=== PATIENT | female | born 1960 | race Caucasian/White ===

== ENCOUNTER → 2019-10-22 13:19 | Outpatient (CLI) | payer OTHER, SELFPAY ==
--- NOTE | ~2019-10-22 | MM_ITS ---
EXAMINATION: MM screening [facility] HISTORY: Screening mammogram TECHNIQUE: Craniocaudal and mediolateral oblique 3-D tomosynthesis images were obtained and synthetic 2-D images were generated. CAD analysis was submitted and interpreted. COMPARISON: 09/06/2018, 08/31/2017, 07/29/2016 bilateral digital screening mammogram examinations BREAST PARENCHYMAL COMPOSITION: There are scattered areas of fibroglandular density. FINDINGS: There is no evidence of suspicious mass, calcification, or architectural distortion to sugg est malignancy in either breast. There has been no suspicious interval change. IMPRESSION: 1. No mammographic evidence of malignancy. 2. Recommend routine screening mammography in one year. BI-RADS Category 1: Negative Reviewed, dictated and finalized at location A.
== END ==
PROVIDERS: PCP Family Medicine Adolescent Medicine; Visit Provider Family Medicine Adolescent Medicine
DX: Z12.31 Encounter for screening mammogram for malignant neoplasm of breast (principal)
CPT/HCPCS: 77063; 77067

== ENCOUNTER → 2020-08-15 12:33 | Outpatient (CLI) | payer OTHER, SELFPAY ==
--- NOTE | ~2020-08-15 | US_ITS ---
EXAMINATION: US right upper quadrant EXAM DATE: 08/15/2020 13:20 INDICATION: Right upper quadrant pain. TECHNIQUE: Multiple grayscale and Doppler images of the abdomen right upper quadrant were obtained (b y a technologist who performed the scan) and subsequently reviewed. There is no prior study for stephan stock[place]. FINDINGS: The pancreatic head and body are normal in appearance. The pancreatic tail is not visualized. The l iver has normal echogenicity and contour. There are no focal liver lesions identified. There is no evidence of intrahepatic biliary duct dilation. Portal venous flow was seen in the hepatopedal, nor mal direction and has normal Doppler waveform. No right-sided hydronephrosis. Common bile duct measures 3 mm, which is normal. The gallbladder wall is normal in thickness, with ex pected amount of distention. No sonographic evidence of pericholecystic fluid. Small amount of echo genic debris suspected in the gallbladder. Technologist performing exam reports patient did not demo nstrate sonographic Schneider's sign. Please note that this sign is less reliable in patients who have received pain medication. IMPRESSION: Probable small amount of gallbladder debris. Reviewed, dictated and finalized at location B. MGR
== END ==
PROVIDERS: PCP Family Medicine Adolescent Medicine; Visit Provider Physician Assistant
DX: R10.11 Right upper quadrant pain (principal)
CPT/HCPCS: 76705

== ENCOUNTER → 2020-11-08 09:21 | Outpatient (CLI) | payer OTHER, SELFPAY ==
--- NOTE | ~2020-11-08 | MM_ITS ---
EXAMINATION: MM screening [facility] w wil[facility] HISTORY: Screening TECHNIQUE: Craniocaudal and mediolateral oblique 3-D tomosynthesis images were obtained and synthetic 2-D images were generated. CAD analysis was submitted and interpreted. COMPARISON: Comparison to multiple prior studies sequentially, with oldest reviewed study dated 09/2013. BREAST PARENCHYMAL COMPOSITION: There are scattered areas of fibroglandular density. FINDINGS: There is no evidence of suspicious mass, calcification, or architectural distortion to sugg est malignancy in either breast. There has been no suspicious interval change. IMPRESSION: 1. No mammographic evidence of malignancy. 2. Recommend routine screening mammography in one year. BI-RADS Category 1: Negative Reviewed, dictated and finalized at location A.
--- NOTE | ~2020-11-08 | DEXA_ITS ---
Bone Density Report Name: Leda Crawford Age: 60 Sex: Female Ethnicity: White Date of : 1960 Indication: osteopenia; monitoring treatment; postmenopausal Referring Provider: Veronika, Jodie Zaragoza Study: Bone densitometry was performed. Exam Date: November 08, 2020 Accession number: [id number] Bone Density: Region BMD T-score Z-score Classification AP Spine (L1-L4) 0.889 -1.4 0.1 Osteopenia Femoral Neck (Left) 0.659 -1.7 -0.4 Osteopenia Total Hip (Left) 0.796 -1.2 -0.2 Osteopenia Femoral Neck (Right) 0.653 -1.8 -0.4 Osteopenia Total Hip (Right) 0.731 -1.7 -0.7 Osteopenia Total Hip Mean 0.764 -1.5 -0.5 Osteopenia World Health Organization criteria for BMD impression classify patients as: Normal (T-score at or above -1.0), Osteopenia (T-score between -1.0 and -2.5), or Osteoporosis (T-score at or below -2.5). 10-year Fracture Risk: FRAX not reported because: Treated for osteoporosis Previous Exams: Region Exam Age BMD T-score BMD Change BMD Change Date g/cm2 vs Baseline vs Previous AP Spine(L1-L4) 11/08/2020 60 0.889 -1.4 0.062* 0.062* 08/23/2017 57 0.827 -2.0 Total Hip(Left) 11/08/2020 60 0.796 -1.2 0.037* 0.037* 08/23/2017 57 0.760 -1.5 Total Hip(Right) 11/08/2020 60 0.731 -1.7 0.017 0.017 08/23/2017 57 0.715 -1.9 *Denotes significance at 95% confidence level, LSC for AP Spine = 0.022 g/cm2, LSC for Total Hip = 0.027 g/cm2 Clinical Information Provided by Patient: Is being treated for osteoporosis Has used the following medications: Fosamax (i.e. alendronate), Vitamin D, Calcium, MTV, Levothyroxine Patient maximum height was 61.75 Menopause Age: 49 Drinks caffeinated beverages Onset of menses at age 10 Number of children 2 Impression: The patient has low bone mass, based on the Right Femoral Neck T-score. No significant bone loss was observed. Discussion: PATIENT UNDER TREATMENT WITH NO SIGNIFICANT BMD LOSS SINCE LAST EXAM. In an untreated patient, BMD typically declines with age. A lack of decline or gain is usually a sign that treatment is efficacious and fracture risk is reduced. It is important to ask patients whether they are taking their medications and to encourage continued and appropriate compliance with their osteoporosis therapies to reduce fracture risk. It is also important to review their risk factors and encourage appropriate calcium and vitamin D intakes, exercis
== END ==
PROVIDERS: PCP Family Medicine Adolescent Medicine; Visit Provider Physician Assistant
DX: Z12.31 Encounter for screening mammogram for malignant neoplasm of breast (principal); Z78.0 Asymptomatic menopausal state; M85.88 Other specified disorders of bone density and structure, other site; M85.852 Other specified disorders of bone density and structure, left thigh; M85.851 Other specified disorders of bone density and structure, right thigh
CPT/HCPCS: 77063; 77067; 77080

== ENCOUNTER → 2022-01-07 12:38 | Outpatient (CLI) | payer OTHER, SELFPAY ==
--- NOTE | ~2022-01-07 | MM_ITS ---
EXAMINATION: MM screening [facility] BI w wilbert HISTORY: Screening mammogram TECHNIQUE: Craniocaudal and mediolateral oblique 3-D tomosynthesis images were obtained and synthetic 2-D images were generated. CAD analysis was submitted and interpreted. COMPARISON: 11/08/2020, 10/22/2019, 09/06/2018 BREAST PARENCHYMAL COMPOSITION: There are scattered areas of fibroglandular density. FINDINGS: There is no suspicious mass, calcification, or architectural distortion to suggest malignan cy in either breast. There has been no suspicious interval change. IMPRESSION: 1. No mammographic evidence of malignancy. 2. Recommend routine screening mammography in one year. BI-RADS Category 1: Negative Reviewed, dictated and finalized at location A.
== END ==
PROVIDERS: PCP Family Medicine Adolescent Medicine; Visit Provider Physician Assistant
DX: Z12.31 Encounter for screening mammogram for malignant neoplasm of breast (principal)
CPT/HCPCS: 77063; 77067

== ENCOUNTER 2022-07-29 00:27 | Day surgery (SDC) | payer OTHER, SELFPAY ==
[2022-07-14 13:57] VITALS: BMI 24.4
--- NOTE | 2022-07-14 13:58 | SUR.PREOP ---
Report to the Outpatient Waiting Room, entrance under the green pavilion located off [facility], at time _0930 on date _07/29/22 . Planned Procedure Time: _1130 . Time changes happen often and if your time is changed the preop area will call you the afternoon before. - You and your visitor will be asked to self-screen and do not enter if you have any COVID symptoms. - Only one visitor is requested with a max of two and NO children visitors are allowed at this time. - The patient visitor may be requested to leave or wait in car when not with patient due to distancing restrictions. - A mask is optional within the hospital. Patients may have clear liquids (water, carbonated beverages, clear teas, apple juice) until 3 hours prior to surgery with a maximum of 20 ounces. - No food from midnight until time of surgery - Infants may have breast milk until 4 hours before surgery, formula 6 hours prior to surgery. - Children will be allowed to drink immediately following surgery. If applicable, please bring a bottle or sippy cup to assist with drinking. Juice, water, soda, and popsicles are readily available. For infants on formula, please bring formula the day of surgery. Pacifiers are allowed. Take the following medications with a SIP of water the morning of surgery: _levothyroxine Medications to discontinue per physician vitamins Date to take last dose__07/26/22 Please no make-up, nail stateless, hairspray, perfume, deodorant, or body powder the day of surgery. No jewelry (including any body piercings) or valuables the day of surgery, leave them at home. Please take a shower or bath the night before, or the morning of, surgery with an antibacterial soap. Wear comfortable, loose fitting clothing. Children are encouraged to wear pajamas. - Jewelry must be removed prior to entering the operating room. Rings and piercings that are not removed may be cut off. - The hospital will not accept responsibility for valuables. - Please leave all valuables, including medications, at home the day of surgery. If you are going home after surgery, a licensed construction driver must drive you home. - NO public transportation without another adult if you receive anesthesia. - We recommend that an adult stay with you for 24 hours following discharge. - We also recommend that you do not drive, make important decision, drink alcoholic beverages, or take any drugs that were not prescribed by your health care provider for at least 24 hours after your discharge time. For Pediatric surgeries, we recommend two adults accompany the child home. Follow any additional instructions given to you from your surgeon. If you or anyone in your household have experienced Covid symptoms in the past week, please notify your surgeon or the nurse liaison at the phone number below for possible testing. Telephone instructions given to _vashti zavaleta and asked if any additional questions and then verbalized understanding. Patient advised to call surgeon office or pre surgery nurse liaison [phone] if any additional questions.
[2022-07-29] VITALS (9 sets, daily range): BP systolic 103–158; BP diastolic 68–101; PULSE 72–99; RESP 14–16; TEMP 36.6–37.1; O2SAT 92–100; BMI 24.6
[2022-07-29] MEDS: LACTATED RINGERS 1,000 ML 30 ML IV CONT ×2 (10:05→14:23)
--- NOTE | 2022-07-29 11:08 | WPDANESEPPF ---
Anes - Initial Pre Proc Eval Procedure: Operation Date: 07/29/22 11:30 Proposed Procedures p Bilateral Upper and Lower Blepharoplasty with Canthopexy - Jatinder Arias MD Operation Date: 08/19/22 10:30 Proposed Procedures p Bilateral Lower Eyelid Blepharoplasty - Jatinder Arias MD Date/Time: 07/29/22 11:08 Surgeon: Jatinder Arias MD Pre Op Diagnosis: Unacceptable Cosmetic Appearance Patient Data Age: 62 Gender: F Height: 1.55 m Weight: 59.15 kg Last Vital Signs Temp 36.6 C 07/29/22 09:50 Pulse 75 07/29/22 09:50 Resp 14 07/29/22 09:50 BP 122/79 07/29/22 09:50 Pulse Ox 99 07/29/22 09:50 O2 Del Method Room Air 07/29/22 09:50 Allergies Allergy/AdvReac Type Severity Reaction Status Date / Time No Known Allergies Allergy Verified 07/29/22 09:57 Home Medications Medication Instructions Recorded Confirmed Type levothyroxine 75 mcg tablet 75 mcg PO DAILY #90 tabs 09/29/21 07/29/22 Rx alendronate 70 mg tablet See Rx Instructions .Route 01/28/22 07/14/22 Rx .COMPLEX #12 tabs cholecalciferol (vitamin D3) 10 10 mcg PO DAILY 07/14/22 07/29/22 History mcg (400 unit) tablet (Vitamin D3) estradiol 10 mcg vaginal insert mcg vaginal 07/14/22 History (Imvexxy Maintenance Pack) lifitegrast 5 % eye drops in a 1 drp EACH EYE DAILY 07/14/22 07/14/22 History dropperette (Xiidra) multivit with 1 tablet PO DAILY 07/14/22 07/29/22 History bzvuuojz-shtz-XR-lutein 8 mg iron-400 mcg-300 mcg tablet (Centrum Silver Women) Patient hx anesthesia problems: none Family hx anesthesia problems: none Results Review: All pre-operative results and documents have been reviewed as part of the pre-operative evaluation. [facility] Past Medical History Medical History Hypothyroid Surgical History Surgical History History of tubal ligation Family History Family History Mother Acute myocardial infarction Heart disease Hypertension Other Breast cancer Sibling Diabetes mellitus Father Hypertension Malignant neoplasm of prostate Other Colon polyp Social History Social History Smoking status: Former smoker Second hand tobacco smoke exposure: No Smoking end date: 08/01/79 Alcohol intake: current Drinks per week: 2 Substance use: never Substance use type: does not use Gender identity (if verbalized by the patient): Female Sexual Orientation (if Verbalized by the Patient): Straight or Heterosexual Spiritual care concerns: No Agree to blood products: Yes Anes - Eval Final PreProcedure Day of Procedure 07/29/22 11:08 Patient weight: normal Heart: regular rate and rhythm Lungs: clear to auscultation Airway: Mallampati scale class II Neurological: alert and oriented Last oral intake: >/= 8 hours ASA classification: II Emergent: no Anesthetic plan: proceed Anesthesia type and monitoring: general LMA and standard monitoring Results Review: All pre-operative results and documents have been reviewed as part of the pre-operative evaluation. Informed Consent: The patient's anesthetic plan and its attendant risks and benefits were discussed with the patient/family/POA. Questions were solicited and answers provided to the satisfaction of the patient/family/POA.
--- NOTE | 2022-07-29 11:32 | P.OP_ITS ---
Procedure Note - Detailed Date of Procedure 07/29/22 Pre-op Diagnosis Unacceptable Cosmetic Appearance Post-op Diagnosis Same Procedure Performed 1. Bilateral upper eyelid blepharoplasty 2. Bilateral lower eyelid transconjunctival blepharoplasty 3. Bilateral lower eyelid canthopexy Surgeon Jatinder Arias MD Anesthesia General Description of Procedure Preoperatively risks, benefits, alternatives were discussed in extensive detail. I want them to be very realistic about the risks involved as well as exp ectations. Discussed what we can and cannot improved. Limitations of this procedure. Alternative procedure as well as adjuvant procedures. This was a lengthy open-ended conversation discussing realistic expectations of outcome. Answered all of their questions to their satisfaction. Consent obtained. She was marked in the preop holding area with her verification. Completed pinch test stimulating the upper lid blepharoplasty to ensure no case. Taken to the operating room placed supine on the operating room table. Anesthesia provided by anesthesiology. Prepped and draped in a standard sterile fashion. 1% lidocaine and 0.25% Marcaine with epinephrine was used anesthetize locally with low volume of local to protect from distortion of structures. Eyes were irrigated with BSS. Tetracaine eyedrops placed. Corneal protectors also placed. A 15 blade used to excise the upper eyelid skin. Open the medial and middle compartments and removed only what was clearly excess adipose tissue. This was closed using a running subcuticular Prolene. This was held at each end using benzoin and Steri-Strips. Needle-tip cautery was used to incise just inferior to the tarsus and a tra nsconjunctival lower lid blepharoplasty technique. The conjunctiva was retracted with a 5-0 nylon. I completed lateral canthotomy and cantholysis. I elevated in a preseptal fashion down to the level of the rim. At this point I entered the nasal, middle, and lateral compartments and removed only what was clearly excess adiposity. I verified strict hemostasis throughout. I verified that the inferior oblique was protected during this procedure. With gentle pressure on the globe I verified the contour the lower lids. Both lids proceeded in the same manner. The lower lid was tensioned for the canthopexy and excess lid removed. Canthal tendon repaired with 5-0 vicryl. Skin with 5-0 nylon. Retraction suture and corneal protectors were removed. Copious irrigated again with BSS solution. Patient was woken taken the PACU without difficulty. All instrument sponge counts were correct at the end the case. Estimated Blood Loss 10 Drains No Packing No Pathology None sent Complications No immediate complications Condition Stable Disposition PACU
--- NOTE | 2022-07-29 11:32 | WPDHPUPDATE1 ---
History and Physical Update Update Date/Time: 07/29/22 11:32 History and Physical has been reviewed, including an updated exam of the patient. There are NO changes in the patient's condition. Risks, benefits, and alternatives have been discussed and questions answered. Patient agrees to proceed with procedure.
[2022-07-29] MEDS: ceFAZolin 2 GM/D5W 50 ML 2 GM/50 ML BAG IVPB (11:45)
[2022-07-29] MEDS: LIDOCAINE HCL 1% PF 30 ML VIAL INFILTRATE (11:58)
[2022-07-29] MEDS: BUPIVACAINE/EPINEPHRINE 0.5% 30 ML VIAL INFILTRATE (11:58)
[2022-07-29] MEDS: BALANCED SALT SOLN OPHTH IRRIG 30 ML BTL EACH EYE (12:00)
[2022-07-29] MEDS: TETRACAINE HCL 0.5% OPHTH SOLN 4 ML BTL 1 DROP EACH EYE (12:23)
[2022-07-29] MEDS: fentaNYL CITRATE INJ (*CRX) 100 MCG/2 ML VIAL 25 MCG IV PUSH (14:24)
[2022-07-29] MEDS: ONDANSETRON INJ 4 MG/2 ML VIAL IV PUSH (15:00)
[2022-07-29] MEDS: oxyCODONE HCL (*CRX) 5 MG TAB IR PO (15:36)
== END 2022-07-29 16:10 | disposition home or self-care (01) ==
PROVIDERS: PCP Family Medicine Adolescent Medicine; Visit Provider Surgery Plastic and Reconstructive Surgery
PROC: (CPT 15823; principal; 2022-07-29 11:30)
DX: Z41.1 Encounter for cosmetic surgery (principal); H02.103 Unspecified ectropion of right eye, unspecified eyelid; H02.106 Unspecified ectropion of left eye, unspecified eyelid; E03.9 Hypothyroidism, unspecified; Z87.891 Personal history of nicotine dependence
CPT/HCPCS: 15823; 15820; 21282; A9270; J0690; J2250; J2405; J2704; J3010; J7120

== ENCOUNTER → 2022-11-19 10:12 | Outpatient (CLI) | payer OTHER, SELFPAY ==
--- NOTE | ~2022-11-19 | DEXA_ITS ---
Bone Density Report Name: ANATOLIY GAVIN Age: 62 Sex: Female Ethnicity: White Date of : 1960 Indication: osteopenia;postmenopausal; monitoring treatment; height loss; Referring Provider: Veronika, Jodie Zaragoza Study: Bone densitometry was performed. Exam Date: November 19, 2022 Accession number: [id number] Bone Density: Region BMD T-score Z-score Classification AP Spine (L1-L4) 0.881 -1.5 0.1 Osteopenia Femoral Neck (Left) 0.650 -1.8 -0.4 Osteopenia Total Hip (Left) 0.790 -1.2 -0.1 Osteopenia Femoral Neck (Right) 0.679 -1.5 -0.1 Osteopenia Total Hip (Right) 0.734 -1.7 -0.6 Osteopenia Total Hip Mean 0.762 -1.5 -0.4 Osteopenia World Health Organization criteria for BMD impression classify patients as: Normal (T-score at or above -1.0), Osteopenia (T-score between -1.0 and -2.5), or Osteoporosis (T-score at or below -2.5). 10-year Fracture Risk: FRAX not reported because: Treated for osteoporosis Previous Exams: Region Exam Age BMD T-score BMD Change BMD Change Date g/cm2 vs Baseline vs Previous AP Spine(L1-L4) 11/19/2022 62 0.881 -1.5 0.054* -0.008 11/08/2020 60 0.889 -1.4 0.062* 0.062* 08/23/2017 57 0.827 -2.0 Total Hip(Left) 11/19/2022 62 0.790 -1.2 0.031* -0.006 11/08/2020 60 0.796 -1.2 0.037* 0.037* 08/23/2017 57 0.760 -1.5 Total Hip(Right) 11/19/2022 62 0.734 -1.7 0.019 0.003 11/08/2020 60 0.731 -1.7 0.017 0.017 08/23/2017 57 0.715 -1.9 *Denotes significance at 95% confidence level, LSC for AP Spine = 0.022 g/cm2, LSC for Total Hip = 0.027 g/cm2 Clinical Information Provided by Patient: Is being treated for osteoporosis Has used the following medications: Fosamax (i.e. alendronate), Calcium, MTV, vit D included in Calcium Patient maximum height was 61.75 Menopause Age: 49 Drinks caffeinated beverages Onset of menses at age 10 Number of children 2 Impression: The patient has low bone mass, based on the Left Femoral Neck T-score. No significant bone loss was observed. Discussion: PATIENT UNDER TREATMENT WITH NO SIGNIFICANT BMD LOSS SINCE LAST EXAM. In an untreated patient, BMD typically declines with age. A lack of decline or gain is usually a sign that treatment is efficacious and fracture risk is reduced. It is important to ask patients whether they are taking their medications and to encourage co
== END ==
PROVIDERS: PCP Family Medicine Adolescent Medicine; Visit Provider Physician Assistant
DX: Z78.0 Asymptomatic menopausal state (principal); M85.88 Other specified disorders of bone density and structure, other site; M85.852 Other specified disorders of bone density and structure, left thigh; M85.851 Other specified disorders of bone density and structure, right thigh
CPT/HCPCS: 77080

== ENCOUNTER 2022-11-23 10:45 | Day surgery (SDC) | payer OTHER, SELFPAY ==
[2022-11-09 10:06] VITALS: BMI 24.1
[2022-11-23 11:40] VITALS: BP 139/93; PULSE 54; RESP 20; TEMP 36.2; O2SAT 100
--- NOTE | 2022-11-23 12:45 | WPDANESEPPF ---
Anes - Initial Pre Proc Eval Procedure: Operation Date: 11/23/22 13:00 Proposed Procedures p Screening Colonoscopy - Sp Owusu MD Date/Time: 11/23/22 12:45 Surgeon: Sp Owusu MD Pre Op Diagnosis: History of Colon Polyps Patient Data Age: 62 Gender: F Height: 1.55 m Weight: 60.4 kg Allergies Allergy/AdvReac Type Severity Reaction Status Date / Time No Known Allergies Allergy Verified 11/23/22 11:44 Home Medications Medication Instructions Recorded Confirmed Type alendronate 70 mg tablet See Rx Instructions .Route 01/28/22 11/23/22 Rx .COMPLEX #12 tabs cholecalciferol (vitamin D3) 10 10 mcg PO DAILY 07/14/22 11/23/22 History mcg (400 unit) tablet (Vitamin D3) estradiol 10 mcg vaginal insert 10 mcg vaginal DAILY 07/14/22 11/23/22 History (Imvexxy Maintenance Pack) lifitegrast 5 % eye drops in a 1 drp EACH EYE DAILY 07/14/22 11/23/22 History dropperette (Xiidra) multivit with 1 tablet PO DAILY 07/14/22 11/23/22 History tpixpjqk-wteq-ZD-lutein 8 mg iron-400 mcg-300 mcg tablet (Centrum Silver Women) olopatadine 0.2 % eye drops 1 drp EACH EYE DAILY 09/09/22 11/23/22 History (Pataday Once Daily Relief) sodium,potassium,mag sulfates 17.5 See Rx Instructions PO .COMPLEX 09/21/22 11/23/22 Rx gram-3.13 gram-1.6 gram oral soln #354 mL (Suprep Bowel Prep Kit) levothyroxine 75 mcg tablet 75 mcg PO DAILY #90 tabs 11/23/22 11/23/22 Rx Patient hx anesthesia problems: none Family hx anesthesia problems: none Results Review: All pre-operative results and documents have been reviewed as part of the pre-operative evaluation. [facility] Past Medical History Medical History Hypothyroid Surgical History Surgical History History of eyelid surgery History of tubal ligation Family History Family History Mother Acute myocardial infarction Heart disease Hypertension Other Breast cancer Sibling Diabetes mellitus Father Hypertension Malignant neoplasm of prostate Other Colon polyp Social History Social History Smoking status: Former smoker Second hand tobacco smoke exposure: No Smoking end date: 08/01/79 Alcohol intake: current Drinks per week: 2 Alcohol use details: 1-2 times per week Substance use: never Substance use type: does not use Living arrangements: with family Occupation/Education: retired Gender identity (if verbalized by the patient): Female Sexual Orientation (if Verbalized by the Patient): Straight or Heterosexual Spiritual care concerns: No Agree to blood products: Yes Anes - Eval Final PreProcedure Day of Procedure 11/23/22 12:45 Patient weight: normal Heart: regular rate and rhythm Lungs: clear to auscultation Airway: Mallampati scale class II Neurological: alert and oriented Last oral intake: >/= 8 hours ASA classification: II Emergent: no Anesthetic plan: proceed Anesthesia type and monitoring: general GIVS and standard monitoring Results Review: All pre-operative results and documents have been reviewed as part of the pre-operative evaluation. Informed Consent: The patient's anesthetic plan and its attendant risks and benefits were discussed with the patient/family/POA. Questions were solicited and answers provided to the satisfaction of the patient/family/POA.
[2022-11-23] MEDS: LACTATED RINGERS 1,000 ML 150 ML IV CONT (13:01)
--- NOTE | 2022-11-23 13:18 | PM.HPGS ---
History of Present Illness History of Present Illness Consent: Risks, benefits, and alternatives have been discussed and questions answered. Patient agrees to proceed with procedure. Chief complaint: History of Colon Polyps Narrative: Leda Crawford is a 62 year old female Presents for screening colonoscopy. Patient's current weight appetite and bowel movements are normal. Patient denies abdominal pain. She has had no bleeding. Family history noncontributory. Patient does have a prior history of adenomatous colon polyp removed colon in 2011. Review of Systems Review of Systems: Review of systems noncontributory. [facility] Past Medical History Medical History Hypothyroid Surgical History Surgical History History of eyelid surgery History of tubal ligation Family History Family History Mother Acute myocardial infarction Heart disease Hypertension Other Breast cancer Sibling Diabetes mellitus Father Hypertension Malignant neoplasm of prostate Other Colon polyp Social History Social History Smoking status: Former smoker Second hand tobacco smoke exposure: No Smoking end date: 08/01/79 Alcohol intake: current Drinks per week: 2 Alcohol use details: 1-2 times per week Substance use: never Substance use type: does not use Living arrangements: with family Occupation/Education: retired Gender identity (if verbalized by the patient): Female Sexual Orientation (if Verbalized by the Patient): Straight or Heterosexual Spiritual care concerns: No Agree to blood products: Yes Meds Home Medications and Allergies Home Medications Medication Instructions Recorded Confirmed Type alendronate 70 mg tablet See Rx Instructions .Route 01/28/22 11/23/22 Rx .COMPLEX #12 tabs cholecalciferol (vitamin D3) 10 10 mcg PO DAILY 07/14/22 11/23/22 History mcg (400 unit) tablet (Vitamin D3) estradiol 10 mcg vaginal insert 10 mcg vaginal DAILY 07/14/22 11/23/22 History (Imvexxy Maintenance Pack) lifitegrast 5 % eye drops in a 1 drp EACH EYE DAILY 07/14/22 11/23/22 History dropperette (Xiidra) multivit with 1 tablet PO DAILY 07/14/22 11/23/22 History epupbfzl-pkxs-QE-lutein 8 mg iron-400 mcg-300 mcg tablet (Centrum Silver Women) olopatadine 0.2 % eye drops 1 drp EACH EYE DAILY 09/09/22 11/23/22 History (Pataday Once Daily Relief) sodium,potassium,mag sulfates 17.5 See Rx Instructions PO .COMPLEX 09/21/22 11/23/22 Rx gram-3.13 gram-1.6 gram oral soln #354 mL (Suprep Bowel Prep Kit) levothyroxine 75 mcg tablet 75 mcg PO DAILY #90 tabs 11/23/22 11/23/22 Rx Allergies Allergy/AdvReac Type Severity Reaction Status Date / Time No Known Allergies Allergy Verified 11/23/22 11:44 Vital Signs Vital Signs - 24 hr 11/23/22 11:40 Temperature 97.2 F L Pulse Rate 54 L Respiratory Rate 20 Blood Pressure 139/93 H Pulse Oximetry 100 Oxygen Delivery Room Air Exam Narrative: Physical exam reveals patient be alert. Vital signs stable. HEENT exam is unremarkable. Patient is anicteric. Lungs are clear to auscultation and percussion. Heart is without murmur or extra sounds. Abdomen bowel sounds are present soft nontender with no organomegaly. Digital external rectal exam is normal. Assessment and Plan Assessment and plan (1) Personal history of colonic polyps: Code(s): Z86.010 - Personal history of colonic polyps Status: Acute Assessment and Plan: Patient has a history of colon polyps 10 years ago. Plan for surveillance colonoscopy at this time. Further recommendations will be given after endoscopy.
[2022-11-23 13:45] VITALS: BP 96/65; PULSE 76; RESP 18; O2SAT 100
--- NOTE | 2022-11-23 13:51 | WPDANESPN ---
Anes - Prog Note Post-Op Date/Time: 11/23/22 13:51 Cardiovascular status: normal Respiratory status: normal Airway patency: baseline Mental status: baseline Post-Op hydration status: normal Vital Signs: Last Vital Signs Temp 36.2 C L 11/23/22 11:40 Pulse 54 L 11/23/22 11:40 Resp 20 11/23/22 11:40 BP 139/93 H 11/23/22 11:40 Pulse Ox 100 11/23/22 11:40 O2 Del Method Room Air 11/23/22 11:40 Pain Score (VAS): 0 I/O: Intake & Output 11/22/22 11/23/22 11/23/22 23:59 07:59 15:59 Intake Total 300 Balance 300 Patient Feedback: Patient satisfied with anesthetic care.
[2022-11-23 13:55] VITALS: BP 99/70; PULSE 75; RESP 18; O2SAT 100
== END 2022-11-23 14:15 | disposition home or self-care (01) ==
PROVIDERS: PCP Family Medicine Adolescent Medicine; Visit Provider Internal Medicine Gastroenterology
PROC: 0DJD8ZZ Inspection of Lower Intestinal Tract, Via Natural or Artificial Opening Endoscopic (ICD-10-PCS; CPT 45378; principal; 2022-11-23 13:00)
DX: Z86.010 Personal history of colon polyps (principal)
CPT/HCPCS: 45378

== ENCOUNTER → 2023-01-10 10:11 | Outpatient (CLI) | payer OTHER, SELFPAY ==
--- NOTE | ~2023-01-10 | US_ITS ---
EXAMINATION: US transvaginal DATE: 01/10/2023 10:42 INDICATION: Postmenopausal bleeding TECHNIQUE: Multiple endovaginal sonographic images of the pelvis were obtained. COMPARISON: None. FINDINGS: The uterus measures 4.1 x 3.0 x 4.0 cm. The endometrial complex measures 6 mm. The right ov carlos measures 1.4 x 1.0 x 1.5 cm and contains a 0.9 cm simple cyst. The left ovary measures 1.5 x 1.3 x 2.4 cm and contains a simple 1 cm cyst. There is normal vascular flow in the ovaries. There is no f ree fluid in the pelvis. IMPRESSION: 1. No sonographic correlate for the patient's symptoms. Reviewed, dictated and finalized at location A.
== END ==
PROVIDERS: PCP Family Medicine Adolescent Medicine; Visit Provider Nurse Practitioner
DX: N95.0 Postmenopausal bleeding (principal)
CPT/HCPCS: 76830

== ENCOUNTER → 2023-01-10 10:13 | Outpatient (CLI) | payer OTHER, SELFPAY ==
--- NOTE | ~2023-01-10 | MM_ITS ---
EXAMINATION: MM screening melissa BI w wilbert HISTORY: Screening mammogram TECHNIQUE: Craniocaudal and mediolateral oblique 3-D tomosynthesis images were obtained and synthetic 2-D images were generated. CAD analysis was submitted and interpreted. COMPARISON: 01/17/2022, 11/08/2020, 10/22/2019 bilateral screening mammogram examinations BREAST PARENCHYMAL COMPOSITION: There are scattered areas of fibroglandular density. FINDINGS: There is no evidence of suspicious mass, calcification, or architectural distortion to sugg est malignancy in either breast. There has been no suspicious interval change. IMPRESSION: 1. No mammographic evidence of malignancy. 2. Recommend routine screening mammography in one year. BI-RADS Category 1: Negative Reviewed, dictated and finalized at location A.
== END ==
PROVIDERS: PCP Family Medicine Adolescent Medicine; Visit Provider Physician Assistant
DX: Z12.31 Encounter for screening mammogram for malignant neoplasm of breast (principal)
CPT/HCPCS: 77063; 77067

== ENCOUNTER → 2023-10-03 13:44 | Outpatient (CLI) | payer OTHER, SELFPAY ==
--- NOTE | ~2023-10-03 | MR_ITS ---
EXAMINATION: MR brain/brain stem wo con DATE: 10/03/2023 14:16 INDICATION: New onset headache. Visual disturbance. TECHNIQUE: Magnetic resonance imaging (MRI) of the brain and brainstem was performed without intraven ous contrast. COMPARISON: None. FINDINGS: There is no intracranial hemorrhage, acute infarction, or abnormal intracranial mass lesion . There are scattered areas of nonspecific increased T2-weighted signal intensity in the cerebral whi te matter, which is within normal limits for the patient's age. There is a focus of increased T2-weig hted signal intensity in the right lentiform nucleus, likely an old infarct. The ventricles are peggy l in size. The orbits are normal. The paranasal sinuses are clear. The mastoid air cells are normal. IMPRESSION: 1. 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 Reviewed, dictated and finalized at location E. ENGER LOCOMOTIVE ENGINEER
== END ==
PROVIDERS: PCP Family Medicine Adolescent Medicine; Visit Provider Family Medicine Adolescent Medicine
DX: R51.9 Headache, unspecified (principal); H53.9 Unspecified visual disturbance
CPT/HCPCS: 70551

== ENCOUNTER 2024-01-12 10:27 | Outpatient (CLI) | payer OTHER, SELFPAY ==
--- NOTE | ~2024-01-12 | MM_ITS ---
EXAMINATION: MM screening melissa BI w wilbert HISTORY: Screening TECHNIQUE: Craniocaudal and mediolateral oblique 3-D tomosynthesis images were obtained and synthetic 2-D images were generated. CAD analysis was submitted and interpreted. COMPARISON: Comparison to multiple prior studies sequentially, with oldest reviewed study dated 08/31. BREAST PARENCHYMAL COMPOSITION: Not dense: There are scattered areas of fibroglandular density. FINDINGS: There is no evidence of suspicious mass, calcification, or architectural distortion to sugg est malignancy in either breast. There has been no suspicious interval change. IMPRESSION: 1. No mammographic evidence of malignancy. 2. Recommend routine screening mammography in one year. BI-RADS Category 1: Negative Reviewed, dictated and finalized at location B.
== END 2024-01-12 10:28 ==
LOC: MICIMG 10:28
PROVIDERS: PCP Family Medicine Adolescent Medicine; Visit Provider Family Medicine Adolescent Medicine
DX: Z12.31 Encounter for screening mammogram for malignant neoplasm of breast (principal)
CPT/HCPCS: 77063; 77067

== ENCOUNTER 2024-09-17 11:56 | Outpatient (CLI) | payer MEDICARE, SELFPAY ==
--- NOTE | ~2024-09-17 | XR_ITS ---
EXAMINATION: XR hip RT 2V w AP pelvis DATE: 09/17/2024 12:15 INDICATION: Right hip pain. TECHNIQUE: An anteroposterior view of the pelvis and 2 views of right hip were obtained. COMPARISON: Right hip radiographs 12/14/2010 FINDINGS: Alignment is normal. No fracture. There is moderate right hip osteoarthritis and mild left hip osteoarthritis. IMPRESSION: 1. Moderate right hip osteoarthritis and mild left hip osteoarthritis. Reviewed, dictated and finalized at location A. FUNCTIONAL ANALYST
== END 2024-09-17 11:57 | disposition home or self-care (01) ==
LOC: MICIMG 11:59
PROVIDERS: PCP Family Medicine Adolescent Medicine; Visit Provider Nurse Practitioner Family
DX: M16.0 Bilateral primary osteoarthritis of hip (principal)
CPT/HCPCS: 73502

== ENCOUNTER 2024-11-20 12:40 | Outpatient (CLI) | payer MEDICARE, SELFPAY ==
--- NOTE | ~2024-11-20 | DEXA_ITS ---
Bone Density Report Name: ANATOLIY GAVIN Age: 64 Sex: Female Ethnicity: White Date of : 1960 Indication: postmenopausal; screening for osteoporosis; Referring Provider: MAMADOU LEARY Study: Bone densitometry was performed. Exam Date: November 20, 2024 Accession number: [id number] Bone Density: Region BMD T-score Z-score Classification AP Spine(L1-L4) 0.922 -1.1 0.6 Osteopenia Femoral Neck (Left) 0.651 -1.8 -0.3 Osteopenia Total Hip (Left) 0.858 -0.7 0.6 Normal Femoral Neck (Right) 0.653 -1.8 -0.2 Osteopenia Total Hip (Right) 0.757 -1.5 -0.3 Osteopenia Femoral Neck Mean 0.652 -1.8 -0.2 Osteopenia Total Hip Mean 0.807 -1.1 0.1 Osteopenia World Health Organization criteria for BMD impression classify patients as: Normal (T-score at or above -1.0), Osteopenia (T-score between -1.0 and -2.5), or Osteoporosis (T-score at or below -2.5). 10-year Fracture Risk(1): Major Osteoporotic Fracture 9.7% Hip Fracture 1.2% Reported Risk Factors: [place] (), Neck BMD=0.651, BMI=26.5 (1) FRAX(R) Version 3.08. Fracture probability calculated for an untreated patient. Fracture probability may be lower if the patient has received treatment. Clinical Information Provided by Patient: Has used the following medications: Fosamax (i.e. alendronate), Vitamin D, Calcium Patient maximum height was 61 Menopause Age: 49 Drinks caffeinated beverages Onset of menses at age 10 Number of children 2 Missed period for more than 6 months in a row Impression: The patient has low bone mass, based on the Left Femoral Neck T-score. Discussion: BONE DENSITY IS LOW AT ONE OR MORE SKELETAL SITES. This patient's lowest T-score is low at one or more skeletal sites. It meets the World Health Organization's (WHO) criteria for ?low bone mass? (T-score between -1.0 and -2.5). The patient's 10-year risk of fracture as calculated by FRAX is less than the threshold where pharmacological therapy is recommended by the National Osteoporosis Foundation (NOF). However, all treatment decisions require clinical judgment and consideration of individual patient factors, including patient preferences, comorbidities, previous drug use, risk factors not captured in the FRAX model (e.g., frailty, falls, vitamin D deficiency, increased bone turnover, interval significant decline in bone density) and possible under or overestimation of fracture risk by FRAX. The patient should follow a healthful lifestyle (good nutrition with adequate calcium and vitamin D, and appropriate weight-bearing exercise). Follow-Up: Consider repeating this study in 2 to 3 years to reassess this patient's status, or sooner if there is some new clinical indication. Reported by: LORRI on 11/20/2024 1:03:00 PM. Reviewed, dictated and finalized at location A.
== END 2024-11-20 12:41 | disposition home or self-care (01) ==
PROVIDERS: PCP Family Medicine Adolescent Medicine; Visit Provider Nurse Practitioner Family
DX: Z78.0 Asymptomatic menopausal state (principal); M85.89 Other specified disorders of bone density and structure, multiple sites
CPT/HCPCS: 77080

== ENCOUNTER 2024-12-14 09:28 | Outpatient (RCR) | payer MEDICARE, SELFPAY ==
--- NOTE | 2024-12-14 10:35 | PTOPEVAL1 ---
Assessment and note entered by Nely Mcdaniels, PT Evaluation Information Assessment Status Evaluation Subjective Information Pt reports pain fluctuate on a daily basis. Better when she is sitting or resting, worse after walking long distances and walking uphill, going up the stairs, concrete and uneven surfaces. Pain described as achy and annoying limiting her from things she wants to do. She has 10 step stairs to a finished basement at home, 10 step stairs to bedroom upstairs all stairs have 1 side railing. However, everything is accessible in the main level so she doesn't have to navigate the stairs daily. Reported Pain Level Pain Score 3: Self Report Assessment PT Clinical Summary Pt presents to therapy with R hip pain requiring introduction and gait training of the proper use of a cane prior to a scheduled Total Hip Replacement surgery on 01/22/[address] Henriquez. She demos good understanding, good 90% accuracy return demonstration of technique and safety. Therapist provided handouts for reference. Skilled PT intervention not necessary or indicated at this time. Plan of Care PT Services Indicated No These treatments will address the objective and functional deficits as defined above. The patient will be advanced safely and appropriately in order for the patient to progress towards his/her prior level of function. Additional exercises will be introduced and as well as a comprehensive home exercise program upon discharge, if needed, to ensure carryover of functional gains achieved in the clinic. This treatment plan has been reviewed and agreement upon by the patient.
--- NOTE | 2024-12-14 11:38 | PTOPEVDC ---
Assessment and note entered by Nely Mcdaniels, PT Thank you for referring Leda Crawford to [facility]. An evaluation has been completed. No further treatment is needed. Evaluation Information Assessment Status Evaluation Subjective Information Pt reports pain fluctuate on a daily basis. Better when she is sitting or resting, worse after walking long distances and walking uphill, going up the stairs, concrete and uneven surfaces. Pain described as achy and annoying limiting her from things she wants to do. She has 10 step stairs to a finished basement at home, 10 step stairs to bedroom upstairs all stairs have 1 side railing. However, everything is accessible in the main level so she doesn't have to navigate the stairs daily. Reported Pain Level Pain Score 3: Self Report Assessment PT Clinical Summary Pt presents to therapy with R hip pain requiring introduction and gait training of the proper use of a cane prior to a scheduled Total Hip Replacement surgery on 01/22/[address] Henriquez. She demos good understanding, good 90% accuracy return demonstration of technique and safety. Therapist provided handouts for reference. Skilled PT intervention not necessary or indicated at this time. Plan of Care PT Services Indicated No
== END 2024-12-17 08:57 | disposition home or self-care (01) ==
LOC: ANHGOSHPT 09:28
PROVIDERS: PCP Family Medicine Adolescent Medicine; Visit Provider Orthopaedic Surgery
DX: M16.11 Unilateral primary osteoarthritis, right hip (principal)
CPT/HCPCS: 97116; 97161

== ENCOUNTER 2025-01-02 11:42 | Outpatient (CLI) | payer MEDICARE, SELFPAY ==
--- NOTE | 2025-01-02 12:49 | ECG_ITS ---
Test Date: 2025-01-02 13:08:37 Measurements Intervals [place] Rate: 46 P: 41 TN: 143 QRS: 0 QRSD: 88 T: 1 QT: 389 QTc: 342 Interpretive Statements SINUS BRADYCARDIA NON-CONDUCTED ATRIAL PREMATURE COMPLEX DELAYED PRECORDIAL R/S TRANSITION CONSIDER INFERIOR INFARCT, AGE INDETERMINATE ABNORMAL ECG No previous ECG available for comparison Electronically Signed On 01-02-2025 13:11:23 CDT by Korey Johnston D.O.
[2025-01-02 13:44] LABS: Basophils Percent Auto 0.7 % (0.2-1.2); Eosinophils Absolute Auto 0.2 K/mm3 (0-0.3); Eosinophils Percent Auto 3.7 % (0-4.4); Hematocrit 38.2 % (37.0-47.0); Immature Granulocyte Absolute 0.02 K/mm3 (0.00-0.031); Immature Granulocyte Percent A 0.3 % (0-0.5); Lymphocytes Absolute Auto 1.58 K/mm3 (0.9-3.2); Lymphocytes Percent Auto 26.7 % (18.3-44.2); Mean Corpuscular HGB Conc 31.4 g/dl (32-36); Mean Corpuscular Hemoglobin 31.5 pg (26-34); Mean Corpuscular Volume 100.3 fl (80-100); Mean Platelet Volume 10.1 fl (7.4-10.4); Monocytes Absolute Auto 0.6 K/mm3 (0.1-0.6); Monocytes Percent Auto 9.3 % (2.6-8.5); Neutrophils Absolute Auto 3.5 K/mm3 (1.3-6.7); Neutrophils Percent Auto 59.3 % (45.5-73.1); Platelet Count Result 277 k/mm3 (150-375); Red Blood Count 3.81 M/mm3 (4.2-5.4); Red Cell Distribution Width 12.8 % (11.5-14.5); White Blood Count 5.9 K/mm3 (4.5-10.0)
[2025-01-02 14:01] LABS: Albumin Level 4.5 g/dL (3.5-5.1); Anion Gap 9 mmol/L (4-12); Blood Urea Nitrogen 18 mg/dL (7-17); Calcium 9.3 mg/dL (8.4-10.2); Carbon Dioxide 29 mmol/L (22-30); Chloride 101 mmol/L (98-107); Estimated Glomerular Filt Rate > 60; Glucose 81 mg/dL (65-110); Potassium 4.2 mmol/L (3.4-5.0); Sodium 139 mmol/L (137-145)
[2025-01-02 16:34] LABS: Urine Cotinine NEGATIVE
== END 2025-01-02 11:43 | disposition home or self-care (01) ==
LOC: ANHSURGERY 11:48
PROVIDERS: PCP Family Medicine Adolescent Medicine; Visit Provider Orthopaedic Surgery
DX: Z01.818 Encounter for other preprocedural examination (principal); M16.11 Unilateral primary osteoarthritis, right hip; R94.31 Abnormal electrocardiogram [ECG] [EKG]
CPT/HCPCS: 80048; 80307; 82040; 83036; 85025; 87081; 93005

== ENCOUNTER 2025-01-14 13:11 | Outpatient (CLI) | payer MEDICARE, SELFPAY ==
--- NOTE | ~2025-01-14 | MM_ITS ---
EXAMINATION: MM screening melissa BI w wilbert HISTORY: Screening TECHNIQUE: Craniocaudal and mediolateral oblique 3-D tomosynthesis images were obtained and synthetic 2-D images were generated. CAD analysis was submitted and interpreted. COMPARISON: Comparison to multiple prior studies sequentially, with oldest reviewed study dated 12/2018. BREAST PARENCHYMAL COMPOSITION: Not dense: There are scattered areas of fibroglandular density. FINDINGS: There is no evidence of suspicious mass, calcification, or architectural distortion to sugg est malignancy in either breast. There has been no suspicious interval change. IMPRESSION: 1. No mammographic evidence of malignancy. 2. Recommend routine screening mammography in one year. BI-RADS Category 1: Negative Reviewed, dictated and finalized at location A.
== END 2025-01-14 13:12 | disposition home or self-care (01) ==
LOC: MICIMG 13:12
PROVIDERS: PCP Family Medicine Adolescent Medicine; Visit Provider Family Medicine Adolescent Medicine
DX: Z12.31 Encounter for screening mammogram for malignant neoplasm of breast (principal)
CPT/HCPCS: 77063; 77067

== ENCOUNTER 2025-01-22 00:35 | Day surgery (SDC) | payer MEDICARE, SELFPAY ==
[2025-01-02 12:10] VITALS: BP 106/63; PULSE 67; RESP 16; TEMP 37.1; O2SAT 99; BMI 26.7
--- NOTE | 2025-01-02 12:31 | PC.NURSE ---
Report to the Outpatient Waiting Room, entrance under the green pavilion located off [facility], at time ___6:00AM____ on date ____01/22/25___. Planned Procedure Time: ___7:30AM .? Time changes happen often and if your time is changed the preop area will call you the afternoon before. - You and your visitor will be asked to self-screen and do not enter if you have any COVID symptoms. Please call surgeon if you need to reschedule. - A mask is optional within the hospital at this time. Patients may have clear liquids (water, carbonated beverages, clear teas, apple juice) until 3 hours prior to surgery (4:30AM) with a maximum of 20 ounces. - No food from midnight until time of surgery and no smoking, or chewing tobacco (or any form of nicotine). No chewing gum, candy or mints. Take only the following medications with a SIP of water on the morning of surgery: ____LEVOTHYROXINE DO NOT STOP ANY OF YOUR OTHER PRESCRIPTION MEDICATIONS PRIOR TO SURGERY EXCEPT THE FOLLOWING Hold all vitamins and supplements for 3 days per anesthesiologist. LAST DOSE 01/18/25 Medications to discontinue per physician __HOLD ASPIRIN AND NSAIDS 7 DAYS PRE-OP PER DR HADDAD. Date to take last dose____01/14/25 Please no make-up, nail ghanaian, hairspray, perfume, deodorant, or body powder the day of surgery.? No jewelry (including any body piercings) or valuables the day of surgery, leave them at home.? Please take a shower or bath the night before, or the morning of, surgery with an antibacterial soap.? Wear comfortable, loose fitting clothing.? - Jewelry must be removed prior to entering the operating room.? Rings and piercings that are not removed may be cut off. - The hospital will not accept responsibility for valuables.? - Please leave all valuables, including medications, at home the day of surgery. If you are going home after surgery, a licensed xm1 tank driver must drive you home.? - NO public transportation without another adult if you receive anesthesia. - We recommend that an adult stay with you for 24 hours following discharge. - We also recommend that you do not drive, make important decision, drink alcoholic beverages, or take any drugs that were not prescribed by your health care provider for at least 24 hours after your discharge time. Follow any additional instructions given to you from your surgeon. Telephone instructions given to ____PATIENT and asked if any additional questions and then verbalized understanding. Patient advised to call surgeon office or pre surgery nurse liaison [phone] if any additional questions.
--- NOTE | 2025-01-21 12:41 | P.HP_ITS ---
H&P: HPI History of Present Illness Date/Time: 01/21/25 12:41 Chief Complaint: Right hip DJD Narrative: 64-year-old female presents today for a right anterior total hip arthroplasty. Patient has been having symptoms in the right hip for approximately 1 year. She has had several episodes severe pain emanating from the hip. These treated shoulders steroids which helped some. At this point patient is on Celebrex 200 mg daily which this point his only offering her mild improvement her symptoms. She has moderately severe type 1 osteoarthritis in the right hip. At this point patient is the hip pain is affecting her daily lifestyle and limiting activities. She would like to proceed with total hip arthroplasty at this point rather than continue nonsurgical treatment Review of Systems Review of Systems: All systems reviewed & are unremarkable except as noted in HPI and below PMFSH Past Medical History Medical History Degenerative joint disease (DJD) of hip Hypothyroid Pure hypercholesterolemia, unspecified Depression Hypertension Osteopenia (2018) Pain in right thigh Right hip pain Hypothyroid Surgical History Surgical History History of eyelid surgery History of tubal ligation Family History Family History Mother Acute myocardial infarction Heart disease Hypertension Age related osteoporosis Other Breast cancer Sibling Diabetes mellitus Father Hypertension Malignant neoplasm of prostate Other Colon polyp Social History Social History (Updated 11/28/24 @ 10:57 by Jazmine Sanchez CMA) Smoking packs per day: 0.5 Smoking cigarettes per day: 10.0 Years smoked: 1 Smoking pack-years: 0.50 Smoking status: Former smoker Tobacco type: cigarettes Second hand tobacco smoke exposure: No Smoking end date: 01/29/85 Alcohol intake: current Drinks per week: 3 Alcohol use details: 1-2 times per week Substance use: never Substance use type: does not use Current Housing: Decline to Answer Concerned About Future Housing: Decline to Answer Difficulty Paying Gas/Electric Bills: Decline to Answer Difficulty Paying for Meds: Decline to Answer Currently Unemployed: Decline to Answer Education: Decline to Answer Difficulty w/ Childcare or Family Care: Decline to Answer Living arrangements: with family Additional living arrangements comments: [place] Occupation/Education: retired Gender identity (if verbalized by the patient): Female Sexual Orientation (if Verbalized by the Patient): Straight or Heterosexual Spiritual care concerns: No Agree to blood products: Yes Meds Home Medications and Allergies Home Medications ?Medication ?Instructions ?Recorded ?Confirmed ?Type bztjgbdr-dtlt-gtts 8 mg-folic 400 1 tablet PO DAILY 07/14/22 01/02/25 History mcg-K 50 mcg-lutein 300 mcg tablet (Centrum Silver Women) aspirin 81 mg tablet,delayed 81 mg PO DAILY 07/10/24 01/02/25 History release atorvastatin 20 mg tablet 20 mg PO DAILY #90 tabs 07/10/24 01/02/25 Rx levothyroxine 75 mcg tablet 75 mcg PO DAILY #90 tabs 09/04/24 01/02/25 Rx lisinopril 5 mg tablet 5 mg PO DAILY #90 tabs 09/17/24 01/02/25 Rx calcium carb-ergocalciferol (vit 1 tablet PO DAILY 01/02/25 01/02/25 History D2) 600 mg calcium-200 unit tablet celecoxib 200 mg capsule (Celebrex) 200 mg PO DAILY PRN pain 01/02/25 01/02/25 History estradiol 10 mcg vaginal tablet 10 mcg vaginal WEEKLY 01/02/25 01/02/25 History vitamin A-vitamin C-vit E-min 1 tablet PO DAILY 01/02/25 01/02/25 History tablet (Ocutabs tablet) Allergies Allergy/AdvReac Type Severity Reaction Status Date / Time No Known Allergies Allergy Verified 01/02/25 12:01 Exam Narrative: 64-year-old female alert pleasant. She is 5 ft tall much 24. She walks with a right hip flexes to 125 causing anterior hip pain, internal rotation 20? causing tightness feeling and external rotation 40? which causes thigh pain. Sti nchfield maneuver causes her anterior proximal thigh pain. She has normal abduction strength in the hip with no tenderness over the trochanter. 2+ dorsalis pedis and posterior tibial pulse palpable. There is no edema in either lower extremity. She has normal sensation both lower extremities. Skin around the hip and groin crease are normal. Resp: Auscultation: clear to auscultation bilaterally Cardio: Rate: regular rate Rhythm: regular rhythm Assessment and Plan Assessment and plan (1) Primary osteoarthritis of right hip: Code(s): M16.11 - Unilateral primary osteoarthritis, right hip Status: Acute Assessment and Plan: 64-year-old female who has moderately severe type 1 osteoarthritis of the right hip. She has continued symptoms on a daily basis. At times they are severe. Patient's symptoms are not improved satisfactory enough with nonsurgical treatment and patient feels she is ready proceed with total hip arthroplasty at this point. Surgical procedure as well as the risks and complications were discussed in detail all questions were answered and we will proceed. Patient will see her primary care doctor for pre-surgical clearance. She may continue with the Celebrex up until the time of surgery. She will stop her aspirin prior to surgery. Patient was also advised to stop estrogen as of 11/28. Patient's hemoglobin is 12.0 platelets 277. Chem panel is all within normal limits creatinine 0.84. Her nasal swab was negative.
[2025-01-22] VITALS (15 sets, daily range): BP systolic 92–132; BP diastolic 48–98; PULSE 65–92; RESP 12–18; TEMP 36.2–37.5; O2SAT 95–100
--- NOTE | ~2025-01-22 | XR_ITS ---
EXAMINATION: XR hip RT 1V w AP pelvis DATE: 01/22/2025 10:36 INDICATION: Right total hip arthroplasty TECHNIQUE: Anteroposterior view of the pelvis and cross-table lateral views of the right hip were obt ained. COMPARISON: None. FINDINGS: Newly placed noncemented right total hip arthroplasty which is in near-anatomic alignment. Acetabular component fixed with a single screw. No fracture. Surgical drain and some soft tissue gas at the ope rative bed. Mild osteoarthritis at the left hip and bilateral sacroiliac joints. Multiple phleboliths in the left hemipelvis. IMPRESSION: 1. Right total hip arthroplasty in near-anatomic alignment, negative for postoperative purposes. Reviewed, dictated and finalized at location A. IMPRESSION: 1. Right total hip arthroplasty in near-anatomic alignment, negative for postop erative purposes.
--- NOTE | ~2025-01-22 | XR_ITS ---
EXAMINATION: XR surgery orthopedic DATE: 01/22/2025 10:16 INDICATION: Right total hip arthroplasty TECHNIQUE: Single frontal fluoroscopic image of the right hip was obtained during procedure performed by Dr. Henriquez. Radiologist was not present for the imaging or procedure. The amount of fluoroscopy time used during this procedure was 0.7 minutes. Total DAP was 0.198 mGym^2. COMPARISON: None. FINDINGS: Noncemented right total hip arthroplasty which appears well seated in near-anatomic alignment. Acetab ular component affixed with at least a single screw. No fractures identified. Expected soft tissue ga s at the operative bed. IMPRESSION: 1. Expected appearance during right total hip arthroplasty. See procedure note for further detail. Reviewed, dictated and finalized at location A.
[2025-01-22] MEDS: LACTATED RINGERS 1,000 ML 30 ML IV CONT ×2 (07:00→10:40)
[2025-01-22] MEDS: VANCOMYCIN 1,000 MG/NS 250 ML BAG 250 MG IVPB (07:00)
[2025-01-22] MEDS: TRANEXAMIC ACID 1,000MG/ISO100 1,000 MG/100 ML BAG 200 MG IVPB (07:00)
[2025-01-22] MEDS: ACETAMINOPHEN 500 MG TABLET 1000 MG PO (07:00)
--- NOTE | 2025-01-22 07:03 | WPDHPUPDATE1 ---
History and Physical Update Update Date/Time: 01/22/25 07:03 History and Physical has been reviewed, including an updated exam of the patient. There are NO changes in the patient's condition. Risks, benefits, and alternatives have been discussed and questions answered. Patient agrees to proceed with procedure.
--- NOTE | 2025-01-22 07:05 | WPDHPUPDATE1 ---
History and Physical Update Update Date/Time: 01/22/25 07:05 History and Physical has been reviewed, including an updated exam of the patient. There are NO changes in the patient's condition. Risks, benefits, and alternatives have been discussed and questions answered. Patient agrees to proceed with procedure. Also , patient did stop her aspirin 7 days ago. She points out that she had never experienced a stroke but a small abnormality was noted on brain MRI in past, done for headache , showed spot of bright T2 right lentiform nucleus c/w infarct. We will plan therefore to use eliquis post op for dvt proph.
--- NOTE | 2025-01-22 07:14 | WPDANESEPPF ---
Anes - Initial Pre Proc Eval Procedure: Operation Date: 01/22/25 07:30 Proposed Procedures p Right Total Hip Arthroplasty Anterior Approach - Omari Henriquez MD Date/Time: 01/22/25 07:14 Surgeon: Omari Henriquez MD Pre Op Diagnosis: o a rt hip Patient Data Age: 64 Gender: F Height: 1.55 m Weight: 63.5 kg Last Vital Signs Temp 97.1 F L 01/22/25 06:30 Pulse 65 01/22/25 06:30 Resp 16 01/22/25 06:30 BP 130/76 01/22/25 06:30 Pulse Ox 100 01/22/25 06:30 O2 Del Method Room Air 01/22/25 06:30 Allergies Allergy/AdvReac Type Severity Reaction Status Date / Time No Known Allergies Allergy Verified 01/22/25 07:07 Home Medications ?Medication ?Instructions ?Recorded ?Confirmed ?Type lnsamgte-cfdr-yxcs 8 mg-folic 400 1 tablet PO DAILY 07/14/22 01/22/25 History mcg-K 50 mcg-lutein 300 mcg tablet (Centrum Silver Women) aspirin 81 mg tablet,delayed 81 mg PO DAILY 07/10/24 01/22/25 History release atorvastatin 20 mg tablet 20 mg PO DAILY #90 tabs 07/10/24 01/22/25 Rx levothyroxine 75 mcg tablet 75 mcg PO DAILY #90 tabs 09/04/24 01/22/25 Rx lisinopril 5 mg tablet 5 mg PO DAILY #90 tabs 09/17/24 01/22/25 Rx calcium carb-ergocalciferol (vit 1 tablet PO DAILY 01/02/25 01/22/25 History D2) 600 mg calcium-200 unit tablet celecoxib 200 mg capsule (Celebrex) 200 mg PO DAILY PRN pain 01/02/25 01/02/25 History estradiol 10 mcg vaginal tablet 10 mcg vaginal WEEKLY 01/02/25 01/22/25 History vitamin A-vitamin C-vit E-min 1 tablet PO DAILY 01/02/25 01/22/25 History tablet (Ocutabs tablet) Patient hx anesthesia problems: none Family hx anesthesia problems: none Results Review: All pre-operative results and documents have been reviewed as part of the pre-operative evaluation. [facility] Past Medical History Medical History Degenerative joint disease (DJD) of hip Hypothyroid Pure hypercholesterolemia, unspecified Depression Hypertension Osteopenia (2018) Pain in right thigh Right hip pain Hypothyroid Surgical History Surgical History History of eyelid surgery History of tubal ligation Family History Family History Mother Acute myocardial infarction Heart disease Hypertension Age related osteoporosis Other Breast cancer Sibling Diabetes mellitus Father Hypertension Malignant neoplasm of prostate Other Colon polyp Social History Social History Smoking packs per day: 0.5 Smoking cigarettes per day: 10.0 Years smoked: 1 Smoking pack-years: 0.50 Smoking status: Former smoker Tobacco type: cigarettes Second hand tobacco smoke exposure: No Smoking end date: 01/29/85 Alcohol intake: current Drinks per week: 3 Alcohol use details: 1-2 times per week Substance use: never Substance use type: does not use Current Housing: Decline to Answer Concerned About Future Housing: Decline to Answer Difficulty Paying Gas/Electric Bills: Decline to Answer Difficulty Paying for Meds: Decline to Answer Currently Unemployed: Decline to Answer Education: Decline to Answer Difficulty w/ Childcare or Family Care: Decline to Answer Living arrangements: with family Additional living arrangements comments: [place] Occupation/Education: retired Gender identity (if verbalized by the patient): Female Sexual Orientation (if Verbalized by the Patient): Straight or Heterosexual Spiritual care concerns: No Agree to blood products: Yes Anes - Eval Final PreProcedure Day of Procedure 01/22/25 07:14 Patient weight: normal Lungs: normal air movement Airway: Mallampati scale class II and special considerations (Small chip noted to R incisor. ) Neurological: alert and oriented Last oral intake: >/= 8 hours ASA classification: II Emergent: no Anesthetic plan: proceed Anesthesia type and monitoring: general ETT and standard monitoring Results Review: All pre-operative results and documents have been reviewed as part of the pre-operative evaluation. HTN, hyperlipidemia. Snores but no known GENEVIEVE. Pt had stress test within the last 2 weeks due to abnormal EKG which is nml, no perfusion defects, nml LVEF. Informed Consent: The patient's anesthetic plan and its attendant risks and benefits were discussed with the patient/family/POA. Questions were solicited and answers provided to the satisfaction of the patient/family/POA.
[2025-01-22] MEDS: ceFAZolin 2 GM/D5W 50 ML 2 GM/50 ML BAG IVPB ×3 (07:26→21:58)
[2025-01-22] MEDS: ceFAZolin SODIUM 1 GM VIAL 3 GM (08:16)
[2025-01-22] MEDS: SODIUM CHLORIDE 0.9% IV 37.7 ML, MORPHINE SULFATE INJ (*CRX) 2 MG, ROPivacaine HCL 1% 2... INFILTRATE (08:17)
[2025-01-22] MEDS: ceFAZolin SODIUM 1 GM VIAL 2 GM IV PUSH (10:02)
[2025-01-22] MEDS: KETOROLAC 15 MG/ML VIAL (*BKC) 7.5 MG IV PUSH ×3 (10:08→23:47)
[2025-01-22] MEDS: TRANEXAMIC ACID 1,000 MG/10 ML AMPUL 1000 MG IV PUSH (10:10)
--- NOTE | 2025-01-22 10:39 | P.OP_ITS ---
Procedure Note - Detailed Date of Procedure 01/22/25 Pre-op Diagnosis o a rt hip Post-op Diagnosis Same Procedure Performed Right total hip arthroplasty direct anterior approach Surgeon Omari Henriquez MD [facility] PA-C Anesthesia General Description of Procedure Patient was brought to the operating room and general anesthesia was administered. She received 2 g of Ancef weight based vancomycin 1 g of TXA preoperatively. Fever padded boots applied she was transferred to the OSI [place] table. SCDs applied to the legs and running during the procedure. The right hip was prepped draped usual fashion. A 10 cm longitudinal incision was made starting 3 cm lateral to the ASIS. The fascia over the tensor fascia aby was exposed and incised along its midportion elevated off the anterior 50% of the TFL muscle. Interval between TFL and rectus femoris developed. Crossing branches of ascending lateral femoral circumflex vessels were ligated with suture divided. Retractor was placed anteromedial to the capsule hip abducted internally rotated the gluteus minimus elevated off the lateral capsule. There is a little bit of deeper detachment of the gluteus minimus but superficially at remained intact distally. Inverted T capsulotomy was performed. Femoral neck osteotomy made according to preoperative templating. The femoral head measured 44 mm in diameter and was arthritic. Acetabulum was exposed and labrum excised. The acetabulum was medialized the medial wall with a 40 mm Reamer under fluoroscopic guidance. We reamed up to 45 mm which gave circumferential reaming at the periphery. We reamed to 46 mm. We saw that we did not encounter the a cysts that were suggested on the preoperative x-rays in the supra-acetabular ilium. The 46 mm emphasis cup was chosen and fully seated at 40? of abduction and with anteversion such that the anterior rim of the shell was just under the anterior rim of the acetabulum. Excellent Press-Fit was achieved. Single screw placed in the ilium which obtained excellent purchase. Thirty-two inner diameter polyethylene liner was fully seated without difficulty. With the table hook in place the leg was externally rotated and extended exposing the proximal femur. We did not incise between piriformis and conjoined tendon and she seemed to have adequate mobility and exposure of the femur the wrist broached to a size have or. We trialed with the 1 mm neck size on the standard offset neck as we predicted on preop templating and this gave leg lengths the exact to the under fluoroscopy and symmetric offset and appropriate soft tissue tension. We calcar planed and assess the torsional stability of the 4 broach and we could see that there was still some play. We broached up to a size 5 and we countersunk this about 1/2 mm this gave complete torsional stability. On trialing with the size 1 had to neck we again saw equal leg lengths under fluoroscopy. Final calcar planing was performed and we chose the size 5 standard neck Actis stem which was impacted and seated fully without complication. No cracks in the calcar. We trialed again with the size 1 had appropriate soft tissue tension and stability. The ceramic 32 mm +1 head was impacted onto the clean and dried trunnion after thorough irrigation with Ancef solution. Hip was reduced and soft tissue tension and stability reconfirmed. Final fluoroscopic picture taken. The superior limb of the capsulotomy was repaired with 2. Vicryl suture. Local anesthetic cocktail was injected in the periarticular soft tissues. The fascia was closed with 1. Vicryl a drain deep in the subcu skin closed with 2 subcutaneous Vicryl and glue. EBL with Cell Saver was measured at 250 cc so we estimated total blood loss 3 years cc. There was not enough blood loss to transfuse any Cell Saver blood back. Two additional g of Ancef and 1 g TXA given time wound closure. I felt bone quality was adequate to allow weight-bearing as tolerated. She was transferred postop recovery room stable condition. [facility] Billing Surgery - Charge Forward: Surgery Billing (Right total hip arthroplasty)
--- NOTE | 2025-01-22 10:47 | PM.OP ---
Procedure Note - Brief Procedure Note - Brief Date of procedure: 01/22/25 o a rt hip Procedure performed: Right anterior total hip arthroplasty Surgeon: SHANNAN Mcgarry Findings: 64-year-old female underwent right anterior total hip arthroplasty on 01/22. I was involved in the procedure including positioning the patient on the OR table in 1st assisting the time surgery. Total time spent was 3 hours
[2025-01-22] MEDS: fentaNYL CITRATE INJ (*CRX) 100 MCG/2 ML VIAL 25 MCG IV PUSH ×2 (11:05→11:56)
[2025-01-22] MEDS: ARTIFICIAL TEARS OPHTH SOLN 15 ML BOTTLE 1 DROP EACH EYE ×2 (12:08→15:22)
[2025-01-22] MEDS: oxyCODONE HCL (*CRX) 5 MG TAB IR PO ×3 (12:54→20:58)
[2025-01-22] MEDS: ACETAMINOPHEN 325 MG TABLET 650 MG PO ×4 (12:54→23:46)
[2025-01-22] MEDS: SODIUM CHLORIDE 0.9% IV 1,000 ML 125 ML IV CONT (12:54)
--- NOTE | 2025-01-22 13:11 | ADMGEN ---
This patient, Leda Crawford, was admitted to [facility] Surg Room 310-01. Patient/family oriented to hospital policies and general routines including ID bracelet, bed and alarms, visiting hours, pain management, procedures, bathroom and other care routines, personal items, smoking policy, room service/diet, and visiting hours. Information on how to activate the Rapid Response Team has been discussed. Patient/Family are encouraged to report perceived risks to care and to ask questions if they do not understand what they are told or what they should do.
[2025-01-22] MEDS: SENNA/DOCUSATE SODIUM TABLET 2 TAB PO (16:03)
[2025-01-22] MEDS: VANCOMYCIN 1,000 MG/NS 250 ML 1,000 MG/250 ML BAG 250 MG IVPB (18:09)
[2025-01-22] MEDS: FAMOTIDINE 20 MG TABLET PO (20:57)
[2025-01-23] MEDS: SODIUM CHLORIDE 0.9% IV 1,000 ML 125 ML IV CONT (00:14)
[2025-01-23 03:34] VITALS: BP 100/53; PULSE 74; RESP 16; TEMP 36.8; O2SAT 97
[2025-01-23] MEDS: LEVOTHYROXINE SODIUM 75 MCG TABLET PO (05:36)
[2025-01-23] MEDS: oxyCODONE HCL (*CRX) 5 MG TAB IR PO ×2 (05:36→10:11)
[2025-01-23] MEDS: ceFAZolin 2 GM/D5W 50 ML 2 GM/50 ML BAG IVPB (05:37)
[2025-01-23] MEDS: ACETAMINOPHEN 325 MG TABLET 650 MG PO ×2 (05:37→10:11)
[2025-01-23] MEDS: VANCOMYCIN 1,000 MG/NS 250 ML 1,000 MG/250 ML BAG 250 MG IVPB (06:24)
[2025-01-23 06:25] LABS: Basophils Percent Auto 0.3 % (0.2-1.2); Eosinophils Percent Auto 0.3 % (0-4.4); Hematocrit 27.9 % (37.0-47.0); Hemoglobin 8.7 g/dL (12.0-15.0); Immature Granulocyte Absolute 0.03 K/mm3 (0.00-0.031); Immature Granulocyte Percent A 0.4 % (0-0.5); Lymphocytes Absolute Auto 1.57 K/mm3 (0.9-3.2); Lymphocytes Percent Auto 20.1 % (18.3-44.2); Mean Corpuscular HGB Conc 31.2 g/dl (32-36); Mean Corpuscular Hemoglobin 31.4 pg (26-34); Mean Corpuscular Volume 100.7 fl (80-100); Monocytes Absolute Auto 0.9 K/mm3 (0.1-0.6); Neutrophils Absolute Auto 5.2 K/mm3 (1.3-6.7); Neutrophils Percent Auto 66.9 % (45.5-73.1); Platelet Count Result 175 k/mm3 (150-375); Red Blood Count 2.77 M/mm3 (4.2-5.4); White Blood Count 7.8 K/mm3 (4.5-10.0)
[2025-01-23 06:42] LABS: Anion Gap 6 mmol/L (4-12); Blood Urea Nitrogen 16 mg/dL (7-17); Carbon Dioxide 24 mmol/L (22-30); Chloride 107 mmol/L (98-107); Estimated CRCL calculation 46 ml/min; Estimated Glomerular Filt Rate > 60; Glucose 97 mg/dL (65-110); Potassium 3.8 mmol/L (3.4-5.0); Sodium 137 mmol/L (137-145)
--- NOTE | 2025-01-23 07:48 | PM.PNORT ---
Subjective Subjective Date/Time Seen: 01/23/25 07:48 Interval history: Postop day 1 patient is alert. She is afebrile vital signs are stable. Blood pressure is slightly low. Patient is having no symptoms from that. Hemoglobin this morning is 8.7. Chem panel is all within normal limits. Patient is been up yesterday with physical therapy walking as well as to the restroom multiple times overnight. She is having no lightheadedness or shortness of breath or chest pain from the lower hemoglobin. Her drain is out. Incision is dry. Neurovascularly she is intact. Pain is very well controlled. This point we will have the patient work with therapy this morning, if she remains asymptomatic from the mild anemia and overall continues to be doing well she will be discharged home late this morning. We will plan have her have a CBC tomorrow to monitor the hemoglobin. This is most likely some hemodilution all affect. Patient only lost 300 cc of blood during surgery. If patient is symptomatic when she is up walking she may need to be kept for another night to monitor her. Objective Data Vital Signs Vital Signs: Vital Signs - 24 hr 01/22/25 10:40 01/22/25 10:55 01/22/25 11:10 Temperature 97.3 F L Pulse Rate 85 72 74 Respiratory Rate 15 12 15 Blood Pressure 132/70 123/98 H 129/71 Pulse Oximetry 100 100 99 Oxygen Delivery Simple Face Mask Simple Face Mask Room Air Oxygen Flow Rate 8 8 01/22/25 11:25 01/22/25 11:40 01/22/25 11:55 Temperature Pulse Rate 73 69 70 Respiratory Rate 15 16 14 Blood Pressure 124/72 112/60 101/58 L Pulse Oximetry 100 97 98 Oxygen Delivery Room Air Room Air Room Air Oxygen Flow Rate 01/22/25 12:10 01/22/25 12:29 01/22/25 12:44 Temperature 99.5 F 97.9 F 98.2 F Pulse Rate 75 70 71 Respiratory Rate 14 18 18 Blood Pressure 102/60 99/51 L 92/52 L Pulse Oximetry 95 100 98 Oxygen Delivery Room Air Oxygen Flow Rate 01/22/25 13:14 01/22/25 13:23 01/22/25 14:14 Temperature 98.2 F 98.1 F Pulse Rate 73 90 Respiratory Rate 18 18 Blood Pressure 99/48 L 99/49 L Pulse Oximetry 98 96 Oxygen Delivery Room Air Oxygen Flow Rate 01/22/25 15:23 01/22/25 18:14 01/22/25 20:19 Temperature 98.7 F 98.5 F Pulse Rate 80 92 Respiratory Rate 18 16 Blood Pressure 99/51 L 101/51 L Pulse Oximetry 98 96 Oxygen Delivery Room Air Oxygen Flow Rate 01/22/25 23:55 01/23/25 03:34 Temperature 98.2 F 98.2 F Pulse Rate 80 74 Respiratory Rate 18 16 Blood Pressure 96/48 L 100/53 L Pulse Oximetry 96 97 Oxygen Delivery Oxygen Flow Rate Intake/Output Intake/Output: Intake & Output 01/20/25 01/21/25 01/22/25 01/23/25 23:59 23:59 23:59 23:59 Intake Total 2390 Balance 2390 Meds/Results Medications: Active Medications Generic Name Dose Route Start Last Admin Trade Name Freq PRN Reason Stop Dose Admin Acetaminophen 650 mg 01/22/25 13:00 01/23/25 05:37 Acetaminophen 325 Mg Tablet PO 650 mg Q4H ИРИНА Administration Apixaban 2.5 mg 01/23/25 09:00 Apixaban 2.5 Mg Tablet PO Q12HR [facility] Artificial Tears 1 drop 01/22/25 11:57 01/22/25 15:22 Artificial Tears Ophth Soln 15 Ml Bottle EACH EYE 1 drop Q2H PRN Administration Dry Eye(s) Atorvastatin Calcium 20 mg 01/23/25 09:00 Atorvastatin 20 Mg Tablet PO DAILY [facility] Calcium Carbonate 500 mg 01/23/25 09:00 Calcium/Vitamin D 500 Mg/5 Mcg (200 I.U.) Tablet PO QAM [facility] Cefdinir 300 mg 01/23/25 09:00 Cefdinir 300 Mg Capsule PO Q12HR ИРИНА Celecoxib 200 mg 01/23/25 09:00 Celecoxib 200 Mg Capsule PO DAILY [facility] Famotidine 20 mg 01/22/25 21:00 01/22/25 20:57 Famotidine 20 Mg Tablet PO 20 mg Q12HR ИРИНА Administration Sodium Chloride 1,000 mls @ 125 mls/hr 01/22/25 12:29 01/23/25 00:14 Normal Saline Iv IV CONT 125 mls/hr .Q8H ИРИНА Administration Vancomycin HCl 1,000 mg in 250 mls @ 250 mls/hr 01/22/25 19:00 01/23/25 06:24 Vancomycin 1,000 Mg/Ns 250 Ml IVPB 01/23/25 07:59 250 mls/hr Q12H ИРИНА Administration Levothyroxine Sodium 75 mcg 01/23/25 06:30 01/23/25 05:36 Levothyroxine Sodium 75 Mcg Tablet PO 75 mcg DAILY@0630 ИРИНА Administration Morphine Sulfate 2 mg 01/22/25 12:29 Morphine Sulfate (*Crx) 2 Mg/Ml Inj IV PUSH Q2H PRN Breakthrough Pain Rated 4-6 or NPO Naloxone HCl 0.1 mg 01/22/25 12:29 Naloxone Hcl 0.4 Mg/Ml Vial IV PUSH Q2M PRN Opiate Reversal Ondansetron HCl 4 mg 01/22/25 12:29 Ondansetron Inj 4 Mg/2 Ml Vial IV PUSH Q4H PRN Nausea And Vomiting Oxycodone HCl 5 mg 01/22/25 13:00 01/23/25 05:36 Oxycodone Hcl (*Crx) 5 Mg Tab Ir PO 5 mg Q4H ИРИНА Administration Oxycodone HCl 5 mg 01/22/25 12:29 Oxycodone Hcl (*Crx) 5 Mg Tab Ir PO Q4H PRN Pain Rated 7-10 Polyethylene Glycol 17 gm 01/23/25 09:00 Polyethylene Glycol 3350 17 Gm Powd.Pack PO QAM ИРИНА Senna/Docusate Sodium 2 tab 01/22/25 17:00 01/22/25 16:03 Senna/Docusate Sodium Tablet PO 2 tab BID ИРИНА Administration Radiology Results: ITS Impressions Intraoperative X-Ray 01/22/25 10:41 IMPRESSION: 1. Expected appearance during right total hip arthroplasty. See procedure note for further detail. Hip/Pelvis X-Ray 01/22/25 10:42 IMPRESSION: 1. Right total hip arthroplasty in near-anatomic alignment, negative for postoperative purposes. Labs Labs: Laboratory Results - last 24 hr 01/22/25 01/23/25 06:46 06:05 WBC 7.8 RBC 2.77 L Hgb 8.7 L D Hct 27.9 L MCV 100.7 H MCH 31.4 MCHC 31.2 L RDW 13.0 Plt Count 175 MPV 10.0 Immature Gran % (Auto) 0.4 Neut % (Auto) 66.9 Lymph % (Auto) 20.1 [place] % (Auto) 12.0 H Eos % (Auto) 0.3 Baso % (Auto) 0.3 Lymph # (Auto) 1.57 [place] # (Auto) 0.9 H Eos # (Auto) 0.0 Baso # (Auto) 0.0 Abs Immat Gran (auto) 0.03 Absolute Neuts (auto) 5.2 Absolute Nucleated RBC 0.000 Nucleated RBC % 0.0 Sodium 137 Potassium 3.8 Chloride 107 Carbon Dioxide 24 Anion Gap 6 BUN 16 Creatinine 0.92 Estim Creat Clear Calc 46 Estimated GFR > 60 Glucose 97 Calcium 8.0 L Antibody Screen Negative
[2025-01-23] MEDS: CEFDINIR 300 MG CAPSULE PO (10:10)
[2025-01-23] MEDS: CALCIUM/VITAMIN D 500 MG/5 MCG (200 I.U.) TABLET PO (10:10)
[2025-01-23] MEDS: SENNA/DOCUSATE SODIUM TABLET 2 TAB PO (10:10)
[2025-01-23] MEDS: polyethylene glycoL 3350 17 GM POWD.PACK PO (10:10)
[2025-01-23] MEDS: APIXABAN 2.5 MG TABLET PO (10:10)
[2025-01-23] MEDS: CELECOXIB 200 MG CAPSULE PO (10:10)
[2025-01-23] MEDS: FAMOTIDINE 20 MG TABLET PO (10:11)
[2025-01-23] MEDS: ATORVASTATIN 20 MG TABLET PO (10:11)
== END 2025-01-23 10:25 | disposition home or self-care (01) ==
LOC: ANHSURGERY 06:03 → ANH3MEDSUR 12:30
PROVIDERS: Physician Assistant Surgical; PCP Family Medicine Adolescent Medicine; Visit Provider Orthopaedic Surgery
PROC: (CPT 27130; principal; 2025-01-22 07:30)
DX: M16.11 Unilateral primary osteoarthritis, right hip (principal); E03.9 Hypothyroidism, unspecified; I10 Essential (primary) hypertension; E78.00 Pure hypercholesterolemia, unspecified; F32.A Depression, unspecified; M85.88 Other specified disorders of bone density and structure, other site; Z79.82 Long term (current) use of aspirin; Z79.1 Long term (current) use of non-steroidal anti-inflammatories (NSAID); Z98.890 Other specified postprocedural states; Z98.51 Tubal ligation status; Z87.891 Personal history of nicotine dependence; Z83.719 Family history of colon polyps, unspecified; Z80.3 Family history of malignant neoplasm of breast; Z80.42 Family history of malignant neoplasm of prostate; Z82.49 Family history of ischemic heart disease and other diseases of the circulatory system
CPT/HCPCS: 27130; 36415; 73501; 80048; 85025; 86850; 86900; 86901; 97161; 97165; 97530; 97535; 99199; A9270; C1776; J0171; J0690; J1100; J1885; J2250; J2270; J2405; J2704; J2795; J3010; J3370; J7030; J7120

== ENCOUNTER 2025-01-24 09:58 | Outpatient (CLI) | payer MEDICARE, SELFPAY ==
[2025-01-24 10:35] LABS: Basophils Percent Auto 0.4 % (0.2-1.2); Eosinophils Absolute Auto 0.1 K/mm3 (0-0.3); Eosinophils Percent Auto 0.7 % (0-4.4); Hematocrit 29.6 % (37.0-47.0); Hemoglobin 9.3 g/dL (12.0-15.0); Immature Granulocyte Absolute 0.03 K/mm3 (0.00-0.031); Immature Granulocyte Percent A 0.4 % (0-0.5); Lymphocytes Absolute Auto 1.54 K/mm3 (0.9-3.2); Mean Corpuscular HGB Conc 31.4 g/dl (32-36); Mean Corpuscular Hemoglobin 31.5 pg (26-34); Mean Corpuscular Volume 100.3 fl (80-100); Mean Platelet Volume 9.9 fl (7.4-10.4); Monocytes Percent Auto 11.8 % (2.6-8.5); Neutrophils Absolute Auto 5.9 K/mm3 (1.3-6.7); Neutrophils Percent Auto 68.7 % (45.5-73.1); Platelet Count Result 190 k/mm3 (150-375); Red Blood Count 2.95 M/mm3 (4.2-5.4); Red Cell Distribution Width 13.1 % (11.5-14.5); White Blood Count 8.5 K/mm3 (4.5-10.0)
== END 2025-01-24 09:59 | disposition home or self-care (01) ==
PROVIDERS: PCP Family Medicine Adolescent Medicine; Visit Provider Physician Assistant Surgical
DX: D64.9 Anemia, unspecified (principal)
CPT/HCPCS: 36415; 85025

== ENCOUNTER 2025-02-18 11:11 | Outpatient (CLI) | payer MEDICARE, SELFPAY ==
--- NOTE | ~2025-02-18 | XR_ITS ---
XR hip RT 2V w AP pelvis 02/18/2025 11:33 Indication: Recent hip arthroplasty Procedure: AP pelvis and 2 views right hip Comparison: 01/22/2025 Findings: There is a right total hip arthroplasty in expected position. Prosthesis well seated. No fr acture, subluxation or dislocation. Pelvic rings intact. Sacral foramen are symmetric. There are pelv ic phleboliths. Impression: 1: No acute bone or joint abnormality. Reviewed, dictated and finalized at location A. Impression: 1: No acute bone or joint abnormality.
== END 2025-02-18 11:12 | disposition home or self-care (01) ==
LOC: MICIMG 11:15
PROVIDERS: PCP Family Medicine Adolescent Medicine; Visit Provider Orthopaedic Surgery
DX: Z96.641 Presence of right artificial hip joint (principal)
CPT/HCPCS: 73502